=== PATIENT | male | born 1955 | race Caucasian/White ===

== ENCOUNTER 2018-08-12 08:30 | Inpatient (IN) ==
[2018-08-12] MEDS ORDERED: Naloxone 0.4 MG/ML INJ IVP PRN (10:15)
[2018-08-12] MEDS ORDERED: Nitroglycerin 0.4 MG TAB.SUBL SL PRN (10:18)
--- NOTE | 2018-08-12 10:44 | Internal Med History&Physical ---
Date of Encounter: 08/12/18 Time of Encounter: 10:37 Internal Medicine - H&P: HPI Chief complaint: chest pain Admitted From: Home Plans for Post Hospital Care: Home History of present illness: Mr. Bass is a 63 year old male with history of HTN, HLD and current everyday smoker presented to [facility] with complaint of chest pain. he was found to have elevated troponin and was loaded with ASA and given therapeutic lovenox nad was transferred to [facility] for further management of NSTEMI. patient was seen and examined at bedside. as per patient he developed chest pain about one week ago while he was walking and opening the door it was left sided, pressure like 5/10 and radiating to his left arm. the pain self resolved after about 3-5 minutes. it happened while he was walking the same day and self resolved after a few minutes. he continued to have similar episodes throughout the week. on [place] morning of admission at about 4 AM he developed left sided, pressure like chest pain that was radiating to his left arm and back of his shoulder that was 9/10 on severity. he decided to take 2 baby ASA without relief so he visited [facility] ED at about 7 AM. he denies ever having any heart history, denies SOB, palpitations, lower extremity edema, prolonged immobilization, diaphoresis, N/V/D. has had no URTI, sick contacts, calf tenderness, swelling, history of blood clots. does report family history of heart disease and his mother suffers from CHF. he is a current every day smoker about one pack per day. has history of HLD however is not compliant with his medication. Past Med Surg Social Fam HX - Past Medical History Medical history: hyperlipidemia, hypertension Psychiatric history: no psych history - Past Surgical History Surgical History: appendectomy - Social History Smoking Status: Current every day smoker Alcohol use: none Drug use: none - Family History Maternal Hx Family Cardiac Disorders: Yes Internal Medicine - H&P: Meds Lisinopril [Zestril] 20 mg PO QPM 08/12/18 [History] Lisinopril-HCTZ 20-12.5 [Prinzide 20-12.5] 1 tab PO DAILY 08/12/18 [History] Allergy/AdvReac Type Severity Reaction Status Date / Time No Known Allergies Allergy Verified 08/12/18 07:11 All Systems PM: A 10-system review of systems was performed and is negative for pertinent findings except as documented above in the HPI. - Constitutional Vitals: Temp Pulse Resp BP Pulse Ox 98.8 F 82 17 151/94 97 08/12/18 10:27 08/12/18 10:27 08/12/18 10:27 08/12/18 10:08/12/18 10:27 Exam: General: Patient is alert, oriented, no acute distress, morbidly obese Head: atraumatic, normocephalic, Eye: normal appearance, PERRL, no scleral icterus, no conjunctival injection ENT: mucous membranes moist, normal external ear exam Neck: normal inspection, trachea midline, full ROM, no carotid bruits Chest: normal inspection, symmetric chest rise, gynecomastia Respiratory: Distant breath sounds secondary to body habitus, Good respiratory effort. Bilateral breath sounds are clear without wheezing, crackles, or rhonchi. Cardiovascular: Distant heart sounds secondary to body habitus, Regular rate and rhythm. s1 and s2 No clicks, rubs, gallops, or murmors. Abdomen: Bowel sounds present normoactive x-4 quadrants. Abdomen is soft, nondistended. no Epigastric tenderness. No guarding or rebound. No organomegaly noted, obese musculoskeletal: Spontaneously moving all extremities. no edema, no calf tenderness Skin: warm, dry, intact. Neuro: Alert and oriented x3 no focal deficit Psych: Patient's affect is normal Internal Med - H&P Results - EKG Data -: EKG Interpreted by Myself EKG shows normal: sinus rhythm (Nonspecific ST-T changes) - EKG Data Prior EKG available for review: no - Assessment and Plan (1) NSTEMI (non-ST elevated myocardial infarction) Current Visit: Yes Status: Acute Assessment and plan: Telemetry monitoring Follow serial troponin/CK-MB/EKG Transthoracic echocardiograph to identify regional wall motion abnormalities and assess LV function Loaded with aspirin 325 mg at [facility], continue with aspirin 81 mg daily Lipitor 80 mg HS Metoprolol 12.5 mg BID continue with home dose lisinopril NTG q5M PRN for chest pain therapeutic lovenox dose given in the [facility] ED will continue BID ( discussed with cardiology who recommended continuing) NPO at midnight for further cardiac testing ( stress vs cath) Cardiology consulted and recs appreciated lipid panel CBC/BMP AM Vital signs as protocol continue to follow troponin and EKG Q6H (2) Hypertension Current Visit: Yes Status: Acute Assessment and plan: continue home medications if not CI Qualifiers: Hypertension type: essential hypertension Qualified Code(s): I10 - Essential (primary) hypertension (3) HLD (hyperlipidemia) Current Visit: Yes Status: Acute Assessment and plan: is not compliant to medications prescribed by PCP lipid panel ordered started on lipitor 80 mg Qhs for NSTEMI Qualifiers: Hyperlipidemia type: unspecified Qualified Code(s): E78.5 - Hyperlipidemia, unspecified (4) Morbidly obese Current Visit: Yes Status: Acute Assessment and plan: was counseled nutrition consult (5) Current every day smoker Current Visit: Yes Status: Chronic Assessment and plan: was counseled (6) DVT prophylaxis Current Visit: Yes Status: Acute Assessment and plan: on lovenox therapeutic dose - Time Spent With Patient Total time spent is greater than 50% in coordination of care (as documented) at patient's floor/unit and/or counseling patient:
[2018-08-12] MEDS ORDERED: *HR* Morphine 2 MG/ML SYRINGE IVP PRN (10:52)
[2018-08-12] MEDS: 0.9 % Sodium Chloride 1,000 ML IVC SCH (10:55)
[2018-08-12] MEDS ORDERED: Lisinopril-HCTZ 20-12.5mg TABLET PO SCH (11:00)
--- NOTE | 2018-08-12 11:01 | Cardiology Consult Note ---
Date of Encounter: 08/12/18 Time of Encounter: 11:00 Assessment and Plan (1) NSTEMI (non-ST elevated myocardial infarction) Current Visit: Yes Status: Acute Per Cardiology: Multiple risk factors. Initial troponin 0.04. Continue to cycle. Currently chest pain-free. Echo pending. Discussed and reviewed with Dr. Amanda Mandel, plan for [facility] tomorrow. On aspirin, statin, beta filipe, WONG inhibitor. All questions answered. Patient and family verbalized her standing and agreed with plan. (2) Current every day smoker Current Visit: Yes Status: Chronic Per Cardiology: Smokes 1ppd for 50 years. Smoking cessation reinforced. Discussion w patient/family: The assessment and plan as outlined above was discussed with the patient and/or family members who expressed understanding and agreement. All questions were answered. Thank you for involving us in the care of your patient. Please call with any questions. History of Present Illness Consult date: 08/12/18 Requesting physician: Trista Sanchez Consult reason: NSTEMI Chief complaint: CP History of present illness: Mr. Bass is a 63 year old male with a relevant past medical history of HTN, HLD, obesity, nicotine abuse. Cardiology consult for chest pain and elevated troponin. Patient seen with family at bedside. He reports he awakened around 4 AM with onset of left-sided chest pressure squeezing/aching sensation with radiation to his left back and down his left arm. He reports symptoms lasted for a few hours and eventually subsided. He denied any shortness of breath, palpitations, dizziness. Currently chest pain-free. Reports has been experiencing intermittent episodes with past few weeks at rest of lesser intensity. He reports his symptoms last for a few minutes and eventually subside. He reports history of smoking about one pack per day for 50 years. He has never had ischemic evaluation. Does not follow regularly with a PCP. Denies any active bleeding or blood loss. Denies any syncope or falls. Reports history of brother from [place] in his 80s. He denies any infectious process denies any fever, chills, nausea, vomiting, diarrhea. He does report increased short of breath with exertion over the past few months. Denies any known history of COPD. Past Med Surg Social Fam HX - Past Medical History Attestation: Yes The following information was validated with the patient. Source: patient, old records reviewed, obtained from family Medical history: hyperlipidemia, hypertension Psychiatric history: no psych history - Past Surgical History Surgical History: appendectomy - Social History Smoking Status: Current every day smoker Packs per day: 1 Smokeless Tobacco Status: No Alcohol use: none Drug use: none - Family History Maternal Hx Family Cardiac Disorders: Yes Medications and Allergies Lisinopril [Zestril] 20 mg PO QPM 08/12/18 [History] Lisinopril-HCTZ 20-12.5 [Prinzide 20-12.5] 1 tab PO DAILY 08/12/18 [History] Allergy/AdvReac Type Severity Reaction Status Date / Time No Known Allergies Allergy Verified 08/12/18 07:11 All Systems Review: The remainder of the systems were reviewed and are negative - Cardiovascular Cardiovascular: as per HPI, chest pain at rest, dyspnea on exertion Physical Examination Vital Signs, Last 4 Hours Temp Pulse Resp BP Pulse Ox 08/12/18 10:27 98.8 F 82 17 151/94 97 General: Conversant, No Apparent Distress HEENT: Atraumatic, Normocephaly, Mucus Membranes Moist Neck: No JVD, Normal carotid pulses Cardiac: Reg Rate and Rhythm, Normal S1 and S2, No Murmur Lungs: Normal Breath Sounds, No Wheeze, Rales, Rhonchi Neuro: Alert and responsive, No focal deficits noted Abdomen: Soft, Non-Tender, Other (obese) Skin: No rashes noted on visualized skin Musculoskeletal: No Chest Wall Tenderness Extremities: No Clubbing, No Cyanosis, No Edema, Normal Pulses Results Laboratory Tests 08/12/18 08/12/18 08/12/18 07:15 07:15 07:15 WBC 6.6 Hgb 15.9 Hct 43.8 Plt Count 174 INR 1.0 Potassium Creatinine Est GFR (Non-Af Amer) Troponin I B-Natriuretic Peptide 21 08/12/18 07:15 WBC Hgb Hct Plt Count INR Potassium 3.8 Creatinine 1.25 Est GFR (Non-Af Amer) 58 L Troponin I 0.04 H* B-Natriuretic Peptide Active Medications Aspirin (Aspirin) 81 mg PO DAILY [facility] Stop: 02/12/19 09:01 Atorvastatin Calcium (Lipitor) 80 mg PO HS [facility] Stop: 02/11/19 21:01 Enoxaparin Sodium (Lovenox) 140 mg SQ BID [facility]; Protocol Stop: 02/11/19 21:01 Lisinopril/HCTZ (Prinzide 20-12.5) 1 each PO DAILY [facility] Stop: 02/11/19 11:01 Sodium Chloride (0.9 % Sodium Chloride) 1,000 mls @ 60 mls/hr IVC .[id number] [facility] Stop: 08/13/18 19:49 Last Admin: 08/12/18 10:55 Dose: 60 mls/hr Documented by: Lisinopril (Zestril) 20 mg PO QPM [facility]; Protocol Stop: 02/11/19 18:01 Metoprolol Tartrate (Lopressor) 12.5 mg PO BID [facility] Stop: 02/11/19 10:31 Morphine Sulfate (Morphine Sulfate) 1 mg IVP Q6HR PRN; Protocol PRN Reason: chest pain Stop: 02/11/19 10:53 Naloxone HCl (Narcan) 0.4 mg IVP Q2MPRN PRN PRN Reason: SEE COMMENTS Stop: 02/11/19 10:16 Nitroglycerin (Nitroglycerin) 0.4 mg SL Q5MPRN PRN PRN Reason: Chest Pain Stop: 02/11/19 10:19 - Imaging and Cardiology Echo: pending Cardiac cath: pending - EKG Interpretation EKG results cardiology: other (SR 70's on tele) Consult Discharge Plan - Plan Referrals: NONE,PCP [Primary Care Provider] -
[2018-08-12 13:32] LABS: Chol/HDL Ratio 7.7 (0-4.9); Cholesterol 161 mg/dL (< 200); HDL Cholesterol 21 mg/dL (40-59); Magnesium 1.7 mg/dL (1.6-2.6); Phosphorous 2.8 mg/dL (2.7-4.5); Triglycerides 408 mg/dL (< 150)
[2018-08-12 13:45] LABS: Thyroid Stimulating Hormone 1.505 mcIU/mL (0.340-5.600)
[2018-08-12 14:14] LABS: Amphetamine Screen,Urine Negative ng/mL (Cutoff=1000); Barbiturate Screen,Urine Negative ng/mL (Cutoff=200); Benzodiazepines Screen,Urine Negative ng/mL (Cutoff=200); Cannabinoid Screen,Urine Negative ng/mL (Cutoff = 50); Cocaine Screen,Urine Negative ng/mL (Cutoff= 300); Opiate Screen,Urine Negative ng/mL (Cutoff=300); Phencyclidine Screen,Urine Negative ng/mL (Cutoff=25)
[2018-08-12] MEDS ORDERED: Acetaminophen 325 MG TABLET PO PRN ×2 (15:38)
[2018-08-12] MEDS: Lisinopril 20 MG TABLET PO SCH (17:55)
[2018-08-12] MEDS: *HR* Enoxaparin 150 MG/ML SYRINGE SQ SCH (21:32)
[2018-08-13] MEDS: 0.9 % Sodium Chloride 1,000 ML IVC SCH (01:22)
[2018-08-13 02:28] LABS: Basophils # 0.1 K/mcL (0.0-0.2); Basophils % 0.8 %; Eosinophils # 0.4 K/mcL (0.0-0.6); Eosinophils % 5.1 %; Hematocrit 39.8 % (37.5-50.1); Hemoglobin 13.8 g/dL (12.9-16.9); Immature Granulocytes % 0.4 % (0-4); Lymphocytes # 2.2 K/mcL (0.6-4.6); Lymphocytes % 30.5 %; Mean Corpuscular HGB Conc 34.7 g/dL (31.6-35.5); Mean Corpuscular Hemoglobin 33.8 pg (28.0-33.3); Mean Corpuscular Volume 97.5 fL (83.0-100.0); Mean Platelet Volume 10.5 fL (9.4-12.4); Monocytes # 0.7 K/mcL (0.0-1.3); Monocytes % 9.3 %; Neutrophils # 3.8 K/mcL (1.6-8.9); Platelet Count 161 K/mcL (140-400); Red Blood Count 4.08 M/mcL (4.19-5.50); Red Cell Distribution Width 12.6 % (11.5-14.5); Segmented Neutrophils % 53.9 %
[2018-08-13 02:46] LABS: BUN/Creatinine Ratio 19 (6-26); Blood Urea Nitrogen 23 mg/dL (8-23); Calcium 8.8 mg/dL (8.6-10.3); Carbon Dioxide 24 mEq/L (23-29); Chloride 110 mEq/L (98-107); Glucose 111 mg/dL (70-105); Osmolality,Calculated 292 (280-300); Sodium 139 mEq/L (136-145); eGFR For Non-African Americans 59 (> 60)
[2018-08-13] MEDS: Aspirin 81 MG TAB.CHEW PO SCH (08:15)
[2018-08-13] MEDS: *HR* Enoxaparin 150 MG/ML SYRINGE SQ SCH (08:24)
[2018-08-13] MEDS ORDERED: Heparin 1,000 UNITS/500 mL 500 ML ONE ×2 (09:33→11:06)
[2018-08-13] MEDS ORDERED: 0.9 % Sodium Chloride 1,000 ML ONE (09:33)
[2018-08-13] MEDS ORDERED: Nitroglycerin 1,000 MCG/10 ML VIAL IV ONE (09:33)
[2018-08-13] MEDS ORDERED: *HR* Heparin 10,000 UNIT/10 ML VIAL ONE (09:33)
[2018-08-13] MEDS ORDERED: ISOVUE-370 200 ML INFUS..BTL ONE ×3 (09:33→11:18)
[2018-08-13 09:43] LABS: Estimated Average Glucose 117 mg/dl; Hemoglobin A1C 5.7 %
--- NOTE | 2018-08-13 09:47 | Electrocardiograph Report ---
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
--- NOTE | 2018-08-13 09:48 | Electrocardiograph Report ---
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
[2018-08-13] MEDS ORDERED: *HR* FentaNYL (PF) 100 MCG/2 ML VIAL ONE (10:13)
[2018-08-13] MEDS ORDERED: *HR* Midazolam HCl 2 MG/2 ML VIAL ONE (10:13)
[2018-08-13] MEDS ORDERED: Tirofiban 12.5 MG/250ML 12.5 MG/250 ML BAG ONE (10:41)
[2018-08-13] MEDS ORDERED: *HR* Ticagrelor 90 MG TABLET ONE (11:36)
--- NOTE | 2018-08-13 11:45 | Invasive Diagnostic Lab Proc ---
Name: Graham Bass Date of Study: 08/13/2018 Date: 1955 Ht: 72.8in Medical Record#: [id number] Age: 63 Wt: 337.31lb Gender: Male BSA: 2.68 Order #: [id number] BMI: 44.7 Physicians Procedure Physician: Jose Patterson MD Referring MD: Referring MD: Staff Name Position Time In Jacquelyn Arellano RN Monitor 10:08 AM Bridget Brumfield RT Scrub 10:16 AM Florin Snyder RN Cold Roller 10:16 AM Indications Indication Non-Stemi Procedures Performed Procedure CORONARY ARTERY ANGIO S&I PRQ CARD ROLANDO STENT W/ANGIO 1 VSL Pre-Procedure Checklist Informed consent is complete signed and on chart. H&P is on chart. ID band is on and ID verified with patient. Patient NPO for procedure The procedure was described for the patient and questions were answered. ECG is on chart. Plan of Care Patient will tolerate the procedure without complications. Adequate level of comfort will be maintained. Hemodynamics will remain stable Patient will recover from procedure without complications. Respiratory function will be maintained. Cardiac rhythm will remain stable. Patient temperature will be maintained. Patient and/or family have verbalized understanding of the procedure. Patient Education Chief Complaint/Reason for Test: Cardiac Cath Developmental Category: Adult (18-64 years) Developmentally Appropriate for Age: Yes Learning Barriers: None Education Needs: Procedure Education Method: Verbal Information Taught: Cardiac Cath Educational Evaluation: Able to repeat information Intravenous Access Time IV Size Location DC'd Fluid/Drip Rate Units RN 20g 1 /" Patent On Arrival 0.9NaCl 25 ml/hr Allergies No Known Allergies Vital Signs Time BP (mmHg) HR (bpm) O2 Sat. RR (bpm) LOC 10:22 AM / % 4 = Oriented but drowsy 10:27 AM / % 4 = Oriented but drowsy 10:27 AM / % 4 = Oriented but drowsy 10:42 AM / % 4 = Oriented but drowsy 10:57 AM / % 4 = Oriented but drowsy 11:12 AM / % 4 = Oriented but drowsy 10:14 AM 187 / 112 62 100 % 12 10:18 AM 154 / 101 59 97 % 12 10:23 AM 144 / 40 51 97 % 10 10:28 AM 150 / 91 51 98 % 12 10:33 AM 166 / 95 58 97 % 10 10:38 AM 172 / 94 56 97 % 10 10:44 AM 163 / 92 58 96 % 9 10:48 AM 169 / 90 58 98 % 11 10:54 AM 174 / 84 62 97 % 7 10:58 AM 168 / 106 55 97 % 14 11:03 AM 148 / 96 56 100 % 11 11:09 AM 163 / 86 57 94 % 10 11:13 AM 174 / 101 58 99 % 16 11:18 AM 187 / 108 62 99 % 12 11:23 AM 163 / 74 70 99 % 8 Procedural Medications Time Medication Dose Units Method Given By 10:17 AM Oxygen 2 L/min nasal cannula Florin Snyder RN 10:17 AM Versed 1 mg Intravenous Florin Snyder RN 10:17 AM Fentanyl 50 mcg Intravenous Florin Snyder RN 10:23 AM Lidocaine 2% 20 ml Subcutaneous Jose Patterson MD 10:27 AM Lidocaine 2% 18 ml Subcutaneous Jose Patterson MD 10:51 AM Heparin 1000 units Intravenous Florin Snyder RN 10:58 AM Heparin 4000 units Intravenous Florin Snyder RN 10:58 AM Aggrastat Bolus: 75 ml Intravenous Florin Snyder RN 10:59 AM Aggrastat 12.5mg/250ml 27 ml/hr Intravenous Florin Snyder RN 11:19 AM Nitroglycerin 150 mcg Intracoronary Edil Patterson MD 11:21 AM Nitroglycerin 200 mcg Intracoronary Edil Patterson MD 11:25 AM Ancef 1 gram Intravenous Florin Snyder RN 11:30 AM Versed 1 mg Intravenous Florin Snyder RN 11:30 AM Fentanyl 50 mcg Intravenous Florin Snyder RN 11:30 AM Brilinta 180 mg Orally Florin Snyder RN ASA Classification: CLASS II- Mild systemic disease (i.e. well-controlled diabetes, hypertension, asthma, cigarette smoking) Mary Score Preprocedure Postprocedure Activity 2- Moves 4 extremities sustained head lift Activity 2- Moves 4 extremities sustained head lift Circulation 2- SBP +/= 20 points of pre-anesthetic level Circulation 2- SBP +/= 20 points of pre-anesthetic level Consciousness 2- Awake and alert oriented x 3 Consciousness 2- Awake and alert oriented x 3 O2 Saturation 2- Able to maintain O2 satruation of 92% on room air O2 Saturation 2- Able to maintain O2 satruation of 92% on room air Respiratory 2- Able to deep breathe and cough well Respiratory 2- Able to deep breathe and cough well Total Score 10 Total Score 10 Contrast Agent: Isovue Diagnostic Contrast: 359 ml Total Contrast: 359 ml Fluoro Dose: 188 mGy Activated Clotting Time Time Seconds to Clot 11:21 AM 328 Procedure Log Time Note Enter By 09:55 AM CathStat 10:08 AM 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 [facility] 10:12 AM Vitals capture started with the following parameters, Patient=Adult, Interval=5 min, Initial Ksirzqqw=806 mmHg, Deflation Rate=5 mmHg, Cuff placed on Left Arm 10:14 AM HR=62 bpm, BNVC=467/112 mmhg, UsV7=735.0 %, Resp=12 B/min 10:16 AM Jacquelyn Arellano RN Position: Monitor Time in: 10:08 10:16 AM Bridget Brumfield Position: Scrub Time in: 10:16 [facility] 10:16 AM Florin Snyder RN Position: Cold Roller Time in: 10:16 10:16 AM Patient charges- Angio tray pack, Navilyst 3mm J, Pulse Oximetry and ACIST tubing and transducer 10:16 AM Case Delayed No 10:16 AM Hair removed from procedure site in procedure lab using clippers. Bilateral groin prepped with Chloraprep by Florin Snyder RN, then patient was draped. Skin intact. 10:16 AM Physician arrived 10:16 [facility] 10:16 AM Meet and greet completed [facility] 10:16 AM Sign in performed according to hospital policy. Informed consent was obtained. 10:16 AM Procedure start 10:16 10:17 AM Time: 10:17 Oxygen on at 2 L/min per nasal cannula by Florin Snyder RN [facility] 10:17 AM ASA Class CLASS II- Mild systemic disease (i.e. well-controlled diabetes, hypertension, asthma, cigarette smoking) 10:17 AM Time: 10:17 Versed 1 mg Intravenous Given by Florin Snyder RN [email or web address] 10:17 AM Time: 10:17 Fentanyl 50 mcg Intravenous Given by Florin Snyder RN [facility] 10:18 AM HR=59 bpm, UYYK=525/101 mmhg, SpO2=97.0 %, Resp=12 B/min 10:19 AM Recorded ECG: HR=53 Condition=Condition 1 10: AM Time: : Patient comfortable and pain free: Yes tsoummers 10: AM Time: LOC: 4 = Oriented but drowsy tsoummers 10: AM Time out was performed according to hospital policy. Conscious sedation and anesthesia was achieved (see medication log with in this report above) 10: AM Pressure channel 1 zeroed. 10:23 AM HR=51 bpm, ZZFM=293/40 mmhg, SpO2=97.0 %, Resp=10 B/min 10: AM Time: : 20 ml Lidocaine 2% to right groin Subcutaneous Given by Jose Patterson MD [facility] 10:24 AM Micro-Introducer Kit utilized for sheath placement 10: AM Unsuccessful access attempt # 1 into the right Femoral artery. Manual pressure applied to achieve hemostasis.. mm 10:27 AM Time: 10:27 Patient comfortable and pain free: Yes tsoummers 10:27 AM Time: 10:LOC: 4 = Oriented but drowsy tsoummers 10:27 AM Time: 10:27 18 ml Lidocaine 2% to right groin Subcutaneous Given by Jose Patterson MD [facility] 10:27 AM Micro-Introducer Kit utilized for sheath placement tsoumm 10:28 AM HR=51 bpm, AAOR=413/91 mmhg, SpO2=98.0 %, Resp=12 B/min 10:29 AM Access obtained by percutaneous puncture. 6Fr 10cm Terumo Lysite sheath placed in right Femoral artery. [id number] oumm 10:29 AM 0.035 145cm Navilyst 3mmJ wire [id number] mm 10:30 AM 5Fr FR 4 catheter inserted over the wire [facility] mm 10:30 AM wire removed 10:31 AM RCA angiography performed in multiple views. tsoumm 10:31 AM Coronary Dominance: right tsoummers 10:31 AM Recorded Pressure: Ao, HR=59, Condition=Condition 1 (Aorta) Ao 132/95/112 10:31 AM Lesion found in Proximal RCA. Pre Stenosis: 60 Pre RUBEN Flow: tsoummers 10:31 AM Right Coronary, Right Posterior Descending Arteries with Right Posterolateral and Acute Marginal branches with 60 % stenosis. If graft is supplying this area, 0 % stenosis tsoummers 10:32 AM 0.035 260cm Navilyst 3mmJ wire [id number] tsoummers 10:32 AM Catheter removed tsoummers 10:32 AM 6Fr XB LAD 3.5 Ferris Bright-Tip guide catheter was used to cannulate the PCI vessel successfully. reused? No tsoummers 10:33 AM wire removed tsoummers 10:33 AM HR=58 bpm, TISU=303/95 mmhg, SpO2=97.0 %, Resp=10 B/min 10:35 AM Guide catheter removed intact. tsoummers 10:36 AM 6Fr XB LAD 4 Ferris Bright-Tip guide catheter was used to cannulate the PCI vessel successfully. reused? No tsoummers 10:38 AM HR=56 bpm, VHMV=131/94 mmhg, SpO2=97.0 %, Resp=10 B/min 10:41 AM difficulty engaging catheter into LCA tsoummers 10:42 AM Time: 10:27 Patient comfortable and pain free: Yes tsoummers 10:42 AM Time: 10:27LOC: 4 = Oriented but drowsy tsoummers 10:42 AM Guide catheter removed intact. tsoummers 10:42 AM 5Fr FL 4 catheter inserted over the wire DNC tsoummers 10:44 AM HR=58 bpm, OBJR=464/92 mmhg, SpO2=96.0 %, Resp=9 B/min 10:44 AM diagnostic J wire reinserted with straight end first... tsoummers 10:45 AM Catheter removed tsoummers 10:46 AM 6Fr XB4.0 Ferris Bright-Tip guide catheter was used to cannulate the PCI vessel successfully. reused? No tsoummers 10:47 AM J wire removed tsoummers 10:47 AM Recorded Pressure: Ao, HR=52, Condition=Condition 1 (Aorta) Ao 146/84/108 10:48 AM HR=58 bpm, TBYP=400/90 mmhg, SpO2=98.0 %, Resp=11 B/min 10:51 AM Guide catheter removed intact. tsoummers 10:51 AM Time: 10:51 Heparin 1000 units Intravenous Given by Florin Snyder RN [facility] 10:54 AM HR=62 bpm, LNCI=469/84 mmhg, SpO2=97.0 %, Resp=7 B/min 10:54 AM 6Fr CLS 4 Runway guide catheter was used to cannulate the PCI vessel successfully. reused? No [facility] 10:56 AM LCA angiography performed in multiple views. [facility] 10:56 AM Recorded Pressure: Ao, HR=55, Condition=Condition 1 (Aorta) Ao 141/84/106 10:56 AM Recorded Pressure: Ao, HR=55, Condition=Condition 1 (Aorta) Ao 140/82/103 10:57 AM Time: 10:42LOC: 4 = Oriented but drowsy [facility] 10:57 AM Time: 10:42 Patient comfortable and pain free: Yes [facility] 10:58 AM HR=55 bpm, NODN=290/106 mmhg, SpO2=97.0 %, Resp=14 B/min 10:58 AM Time: 10:58 Heparin 4000 units Intravenous Given by Florin Snyder RN [facility] 10:59 AM Time: 10:58 Aggrastat Bolus: 75 ml Intravenous Given by Florin Snyder RN Guaman pump [facility] 10:59 AM Time: 10:59 Aggrastat 12.5mg/250ml 27 ml/hr Intravenous Given by Florin Snyder RN Guaman pump [facility] 11:00 AM Lesion found in Mid LAD. Pre Stenosis: 100 Pre RUBEN Flow: 0: No Flow/No perfusion [facility] 11:00 AM Mid/Distal Left Anterior Descending Coronary Artery and diagonal branches with 100% stenosis. If graft is supplying this area, 0 % stenosis [facility] 11:03 AM HR=56 bpm, JHWW=741/96 mmhg, UhG7=096.0 %, Resp=11 B/min 11:04 AM .014 [employer] [place] 190cm guide wire across target lesion- successful. reused? No. Placed in Circ [facility] 11:05 AM Inflation device was opened. [facility] 11:06 AM .014 [employer] [place] 190cm guide wire across target lesion- successful. reused? No [facility] 11:09 AM HR=57 bpm, BUZI=261/86 mmhg, SpO2=94.0 %, Resp=10 B/min 11:12 AM Time: 10:57 Patient comfortable and pain free: Yes [facility] 11:12 AM Time: 10:57LOC: 4 = [facility] AM 1.5 mm x 15 mm Emerge Monorail balloon across target lesion- successful. reused? No [facility] 11:13 AM HR=58 bpm, JGBK=300/101 mmhg, SpO2=99.0 %, Resp=16 B/min 11:14 AM Balloon inflated @ 6 jessenia for 12 seconds [facility] 11:15 AM contacted bed management Boris, [facility] 11:15 AM Balloon inflated @ 6 jessenia for 14 seconds [facility] 11:15 AM Balloon catheter removed intact. [facility] 11:16 AM 3.0mm x 20mm Synergy drug-eluting stent across target lesion- successful Lot #[id number] [facility] 11:18 AM HR=62 bpm, VQEV=444/108 mmhg, SpO2=99.0 %, Resp=12 B/min 11:18 AM Recorded ECG: HR=59 Condition=Condition 1 11:19 AM Stent deployed @ 6 jessenia for 12 seconds [facility] 11:19 AM Time: 11:19 Nitroglycerin 150 mcg Intracoronary Given by Edil Patterson MD 11:20 AM Stent balloon reinflated @ 9 jessenia for 6 seconds [facility] 11:20 AM Stent balloon reinflated @ 14 jessenia for 9 seconds [facility] 11:21 AM At 11:21 the ACT was 328 seconds. [facility] 11:21 AM Stent delivery system removed intact. [facility] 11:22 AM Time: 11:21 Nitroglycerin 200 mcg Intracoronary Given by Edil Patterson MD 11:23 AM HR=70 bpm, FXDM=095/74 mmhg, SpO2=99.0 %, Resp=8 B/min 11:24 AM guide wires removed intact [facility] 11:24 AM Guide catheter removed intact. [facility] 11:24 AM 5Fr Pigtail catheter inserted over the wire DNC cristinevalarie 11:25 AM Time: 11:25 Ancef 1 gram Intravenous Given by Florin Snyder RN 11:26 AM Catheter removed, unable to cross to LV tsjeannette 11:27 AM Bolus angiogram of right Femoral complete: hand injected yasmin 11:27 AM Time: 11:12 Patient comfortable and pain free: Yes yasmin 11:27 AM Time: 11:12LOC: 4 = Oriented but drowsy tsjeannette 11:28 AM Procedure completed at 11:28 08/13/2018[facility] 11[facility]28 AM Did you address RUBEN flow and Dominance? Yes [facility] AM Sign out completed: Radiation Dose 1811.67 mGy, 188 Gy/cm2 Fluoro Time: 27 Isovue 370 - 200ml contrast 359 ml given by Jose Patterson MD. Complications: None. 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 Sedation minutes 72. Cardiac Rehab Consult needed: Yes. Confirmed administered medications: Yes jeannette 11:29 AM Isovue 370 - 200ml,3 Bottle(s) used. [facility] 11[facility]29 AM Arterial sheath pulled, Angio-seal closure device used and was Successful [id number] S/N. tsyasmin 11:29 AM Estimated Blood Loss: less than 50cc tsoujeannette 11:30 AM Post ECG NSR yasmin 11:30 AM Post Blood Pressure 180/93 tsjeannette 11:30 AM Information taught Cardiac Cath, PCI, and Angioseal jeannette 11:30 AM Time: 11:30 Versed 1 mg Intravenous Given by Florin Snyder RN 11:30 AM Time: 11:30 Fentanyl 50 mcg Intravenous Given by Florin Snyder RN 11:30 AM Time: 11:30 Brilinta 180 mg Orally Given by Florin Snyder RN 11:31 AM Education needs Procedure, Plan of Care, and Responsibilities of Patient in Care tsjeannette 11:31 AM Learning barriers :None yasmin 11:31 AM Education Methods Verbal yasmin 11:31 AM Education evaluation Able to repeat information gopi 11:32 AM Plavix, Effient or Brilinta given Yes gopi 11:32 AM Delay to floor No gopi 11:32 AM Family placed in consult room. tsyasmin 11:33 AM Lesion found in Proximal LAD. Pre Stenosis: 40 Pre RUBEN Flow: tsoummers 11:33 AM Proximal Left Anterior Descending Coronary Artery with 40% stenosis. If graft is supplying this territory, 0 % stenosis. [facility] 11[facility]37 AM Report given to esmer OSBORNE Pt taken to E Room #24. 11:37 tsoummers 11:37 AM Site status No bleeding/hematoma - Rt Groin as reported by Bridget Brumfield RT at 11:32 [facility] 11:37 AM Opsite applied gopi Complications Complication None Hemodynamics Pressures Site Systolic/A Wave Diastolic/V Wave Mean AO 132 95 112 AO 146 84 108 AO 141 84 106 AO 140 82 103 Post Procedure Information Blood Pressure: 180/93 mmHg Rhythm: NSR Post procedural instructions were given Closure Device Time Device Success/Fail 08/13/2018 11:32:00 AM Angio-Seal VIP Successful Site Checks Time Location Status Staff Sheath In? Note 11:32 AM Rt Groin No bleeding/hematoma Bridget Brumfield RT Pulses Time Site Pre-Procedure Post-Procedure Note Bilateral DP & PT 2+ Bilateral radial 2+ Updated by Jacquelyn Arellano RN on 08/13/2018 11:38:04 AM electronically signed on 08/13/2018 11:39:21 AM with status of Final
--- NOTE | 2018-08-13 11:57 | Pre-Sedation Evaluation ---
Pre-sedation evaluation - Pre-sedation checklist Date of procedure: 08/13/18 Procedure: C Recent Vitals: Last Vital Signs Temp 98.0 F 08/13/18 08:05 Pulse 68 08/13/18 08:05 Resp 16 08/13/18 08:05 BP 157/93 08/13/18 08:05 Pulse Ox 96 08/13/18 08:20 H&P (including ROS) documented in medical record: Yes Previous reaction to sedatives/anesthetics: No Dietary Status: NPO after Midnight Dentition: No loose teeth or bridges ASA Classification *see protocol: CLASS II-Mild systemic disease Cardiac Registry (Cardio Only) - Functional Capacity Functional Capacity: >=4 METS with symptoms - Clincal Frailty Scale Clinical Frailty Scale: Managing Well
[2018-08-13] MEDS ORDERED: Tirofiban 12.5 MG/250ML 12.5 MG/250 ML BAG IVC SCH (12:00)
--- NOTE | 2018-08-13 14:17 | Internal Med Progress Note ---
Hospitalist Progress Note - Encounter Date of Encounter: 08/13/18 Time of Encounter: 14:15 - Subjective Interval History: Mr. Bass is a 63 year old male with history of HTN, HLD, morbid obesity and current everyday smoker presented to [facility] [facility] with complaint of chest pain. he was found to have elevated troponin and was loaded with ASA and given thera peutic lovenox and transferred to [facility] for further management of NSTEMI. He was admitted in the hospital and placed him on telemetry monitor. He was continue her on Lovenox subcutaneous injection at therapeutic dose. His troponin's peak at 4.98. He was evaluated by Cardiology and who did C today. He just came back from [facility] with PCI. He denied any more CP. He still has some BADILLO and SOB. - Exam Vitals: Temp Pulse Resp BP Pulse Ox 97.9 F 50 18 147/89 99 08/13/18 13:45 08/13/18 13:45 08/13/18 13:45 08/13/18 13:45 08/13/18 13:45 Exam: Gen: Alert, awake, Oriented to time,place and person Chest: Diminished breath sounds B/L, mild wheezing, No crackles, No rales Heart: S1S2+ RRR No murmurs Abd: Soft, NT, BS +, No organomegaly Ext: No edema, pulses are palpable, No calf tenderness Neuro : Benign findings Skin: No rash. - Assessment and Plan (1) NSTEMI (non-ST elevated myocardial infarction) Current Visit: Yes Status: Acute Assessment and Plan: cont on tele his trop peaked at 4.98 Did go for [facility] with s/p PCI to mid LAD today cont ASA + Brilinta d/c Lovenox cont Lipitor, Lisinopril and BB Metoprolol Patient does need to stay in the hospital more than 2 midnights due to his complex medical problems with NSTEMI and CAD. So we will change him to full admission today. I did review my colleague Dr. Sanchez's H & P including HPI, PMH, PSH, FH, SH, and ROS no changes noticed (2) CAD (coronary artery disease) Current Visit: Yes Status: Acute Assessment and Plan: as above (3) Hypertension Current Visit: Yes Status: Acute Assessment and Plan: stable BP with current meds (4) HLD (hyperlipidemia) Current Visit: Yes Status: Acute Assessment and Plan: reviewed Lipid profile cont Lipitor 80mg (5) Morbidly obese Current Visit: Yes Status: Acute Assessment and Plan: was counseled nutrition consult concerning for YOJANA.. Recommended outpatient sleep study (6) Current every day smoker Current Visit: Yes Status: Chronic Assessment and Plan: Counseled to quit smoking placed on nicotine patch (7) DVT prophylaxis Current Visit: Yes Status: Acute Assessment and Plan: heparin SQ - Time Spent with Patient Total time spent is greater than 50% in coordination of care (as documented) at patient's floor/unit and/or counseling patient: Internal Medicine: Result - Labs CBC & Chem 7: 08/13/18 02:11 08/13/18 02:11 Labs: Short CBC 08/13/18 Range/Units 02:11 WBC 7.1 (4.3-11.1) K/mcL Hgb 13.8 D (12.9-16.9) g/dL Hct 39.8 (37.5-50.1) % Plt Count 161 (140-400) K/mcL Neutrophils # 3.8 (1.6-8.9) K/mcL BMP 08/13/18 02:11 Sodium 139 Potassium 4.0 Chloride 110 H Carbon Dioxide 24 BUN 23 Creatinine 1.23 Glucose 111 H Calcium 8.8 Cardiac Enzymes 08/12/18 Range/Units 16:07 Troponin I 4.98 H* (< 0.04) ng/mL - Impressions Impressions Echocardiogram 08/12/18 10:17 Impressions: LVEF 55-60%. Mild segmental left ventricular systolic dysfunction (see Wall Motion section for detail). Mild concentric left ventricular hypertrophy. Asymmetric apical hypertrophy (1.6 cm) with hypokinesis, cannot rule out apical hypertrophic cardiomyopathy. Mild left ventricular diastolic dysfunction. Normal right ventricular structure and function. Mild tricuspid regurgitation. No evidence of pulmonary hypertension. Left Ventricular Wall Motion: Rest Echo Findings The apex, apical anterior, apical septal and mid anterior septal olmos were hypokinetic. All other wall segments showed normal motion. Findings: Study Quality * Technically adequate exam. ECG Findings * Normal sinus rhythm. Left Ventricle * LVEF 55-60%. * Normal LV chamber size. * Mild segmental left ventricular systolic dysfunction. * Mild concentric left ventricular hypertrophy. * Asymmetric apical hypertrophy (1.6 cm) with hypokinesis, cannot rule out apical hypertrophic cardiomyopathy. * Mild left ventricular diastolic dysfunction. Right Ventricle * Normal right ventricular structure and function. Left Atrium * Normal left atrial size. Right Atrium * Normal right atrial size. Interatrial Septum * Interatrial septum not well evaluated. Aortic Valve * Trileaflet aortic valve with normal function. * No aortic stenosis. * No aortic regurgitation. Mitral Valve * Normal mitral valve structure. * No mitral stenosis. * Trace mitral regurgitation. Tricuspid Valve * Normal tricuspid valve structure. * No tricuspid stenosis. * Mild tricuspid regurgitation. * Unable to estimate RVSP due to lack of IVC visualization. RV-RA gradient 20 mmHg. * No evidence of pulmonary hypertension. Pulmonic Valve * Pulmonic valve is not well visualized. * No pulmonic stenosis. * No pulmonic regurgitation. Aorta * Normally sized aortic root. Pericardium * The pericardium appears normal. IVC * The IVC is not well evaluated. Consult Discharge Plan - Plan Referrals: Saida Shelton CNP [Primary Care Provider] - 08/21/18 12:45 pm (2) CAD (coronary artery disease) Qualifiers: Coronary Disease-Associated Artery/Lesion type: [place] artery [place] vs. transplanted heart: [place] heart Associated angina: with unstable angina Qualified Code(s): I25.110 - Atherosclerotic heart disease of [place] coronary artery with unstable angina pectoris (3) Hypertension Qualifiers: Hypertension type: essential hypertension Qualified Code(s): I10 - Essential (primary) hypertension (4) HLD (hyperlipidemia) Qualifiers: Hyperlipidemia type: unspecified Qualified Code(s): E78.5 - Hyperlipidemia, unspecified
[2018-08-13] MEDS ORDERED: *HR* LORazepam 1 MG TABLET PO PRN (16:26)
[2018-08-13] MEDS: Lisinopril 20 MG TABLET PO SCH (17:32)
[2018-08-13] MEDS: *HR* Heparin 5,000 UNIT/ML VIAL SQ SCH (17:32)
[2018-08-14] MEDS: *HR* Heparin 5,000 UNIT/ML VIAL SQ SCH (05:51)
[2018-08-14 07:06] VITALS: BP 129/82
[2018-08-14 07:41] LABS: BUN/Creatinine Ratio 15 (6-26); Blood Urea Nitrogen 17 mg/dL (8-23); Calcium 8.9 mg/dL (8.6-10.3); Carbon Dioxide 23 mEq/L (23-29); Chloride 106 mEq/L (98-107); Glucose 109 mg/dL (70-105); Osmolality,Calculated 288 (280-300); Potassium 4.3 mEq/L (3.5-5.1); Sodium 138 mEq/L (136-145); eGFR For Non-African Americans > 60 (> 60)
--- NOTE | 2018-08-14 08:15 | Cardiology Progress Note ---
Date of Encounter: 08/14/18 Time of Encounter: 08:10 Assessment and Plan (1) NSTEMI (non-ST elevated myocardial infarction) Current Visit: Yes Status: Acute Per Cardiology: Peak trop 4.98. CP free. ECHO: Impressions: LVEF 55-60%. Mild segmental left ventricular systolic dysfunction (see Wall Motion section for detail). Mild concentric left ventricular hypertrophy. Asymmetric apical hypertrophy (1.6 cm) with hypokinesis, cannot rule out apical hypertrophic cardiomyopathy. Mild left ventricular diastolic dysfunction. Normal right ventricular structure and function. Mild tricuspid regurgitation. No evidence of pulmonary hypertension. S/p LHC: Lesion Findings/Interventions * Left Main Coronary Artery The LMCA is angiographically free of disease. * Left Anterior Descending There is a 40% stenosis in the Proximal LAD. There is a 20 mm long, 100% stenosis in the Mid LAD. The lesion has a RUBEN flow of 0. An intervention was performed on the Mid LAD with a final stenosis of 0%. There were no lesion complications. The final RUBEN flow was 3. * Circumflex The Circumflex is angiographically free of disease. The 1st Marginal is angiographically free of disease. * Right Coronary Artery There is a 60% stenosis in the Proximal RCA. On aspirin, statin, beta filipe, WONG inhibitor. Received Brilinta load in [employer] Child Care [employer] yesterday, will start Brilinta 90mg PO BID-- assistance card provided. F/u arranged, cardiology signing off, re-consult PRN. Post-AR and procedure care/education provided. All questions answered. (2) Current every day smoker Current Visit: Yes Status: Chronic Per Cardiology: Smoked 1ppd for 50 years. Smoking cessation reinforced. Had success with Chantix in the past, patient prefers to monitor for now. Discussion w patient/family: The assessment and plan as outlined above was discussed with the patient and/or family members who expressed understanding and agreement. All questions were answered. Thank you for involving us in the care of your patient. Please call with any questions. Subjective Principal diagnosis: NSTEMI Interval history: Denies any chest pain, shortness of breath, palpitations. Denies any concerns from his right groin site. Objective Vital Signs, Last 4 Hours Temp Pulse Resp BP Pulse Ox 08/14/18 07:04 98.3 F 71 17 129/82 96 08/14/18 05:44 97.8 F 61 12 132/77 99 General: Conversant, No Apparent Distress HEENT: Atraumatic, Normocephaly, Mucus Membranes Moist Neck: No JVD, Normal carotid pulses Cardiac: Reg Rate and Rhythm, Normal S1 and S2, No Murmur Lungs: Normal Breath Sounds, No Wheeze, Rales, Rhonchi Neuro: Alert and responsive, No focal deficits noted Abdomen: Soft, Non-Tender Skin: No rashes noted on visualized skin, Other (Right groin site with mild ecchymosis, no bleeding, no hematoma, right PT and DP pulses 1+ palpable) Musculoskeletal: No Chest Wall Tenderness Extremities: No Clubbing, No Cyanosis, No Edema, Normal Pulses Results 08/13/18 02:11 08/14/18 06:49 Lab Results Laboratory Tests 08/12/18 08/12/18 08/12/18 07:15 11:21 16:07 Creatinine Est GFR (Non-Af Amer) Troponin I 0.04 H* 1.40 H* 4.98 H* 08/14/18 06:49 Creatinine 1.13 Est GFR (Non-Af Amer) > 60 Troponin I ITS Impressions Echocardiogram 08/12/18 10:17 Impressions: LVEF 55-60%. Mild segmental left ventricular systolic dysfunction (see Wall Motion section for detail). Mild concentric left ventricular hypertrophy. Asymmetric apical hypertrophy (1.6 cm) with hypokinesis, cannot rule out apical hypertrophic cardiomyopathy. Mild left ventricular diastolic dysfunction. Normal right ventricular structure and function. Mild tricuspid regurgitation. No evidence of pulmonary hypertension. Left Ventricular Wall Motion: Rest Echo Findings The apex, apical anterior, apical septal and mid anterior septal olmos were hypokinetic. All other wall segments showed normal motion. Findings: Study Quality * Technically adequate exam. ECG Findings * Normal sinus rhythm. Left Ventricle * LVEF 55-60%. * Normal LV chamber size. * Mild segmental left ventricular systolic dysfunction. * Mild concentric left ventricular hypertrophy. * Asymmetric apical hypertrophy (1.6 cm) with hypokinesis, cannot rule out apical hypertrophic cardiomyopathy. * Mild left ventricular diastolic dysfunction. Right Ventricle * Normal right ventricular structure and function. Left Atrium * Normal left atrial size. Right Atrium * Normal right atrial size. Interatrial Septum * Interatrial septum not well evaluated. Aortic Valve * Trileaflet aortic valve with normal function. * No aortic stenosis. * No aortic regurgitation. Mitral Valve * Normal mitral valve structure. * No mitral stenosis. * Trace mitral regurgitation. Tricuspid Valve * Normal tricuspid valve structure. * No tricuspid stenosis. * Mild tricuspid regurgitation. * Unable to estimate RVSP due to lack of IVC visualization. RV-RA gradient 20 mmHg. * No evidence of pulmonary hypertension. Pulmonic Valve * Pulmonic valve is not well visualized. * No pulmonic stenosis. * No pulmonic regurgitation. Aorta * Normally sized aortic root. Pericardium * The pericardium appears normal. IVC * The IVC is not well evaluated. Chest X-Ray 08/13/18 16:25 IMPRESSION: No acute findings in the chest. D/ / Asher Gregorio MD / Asher Gregorio MD Interpreting Provider: Asher Gregorio MD Active Medications Acetaminophen (Tylenol) 650 mg PO Q6HR PRN PRN Reason: headache Stop: 02/11/19 15:39 Last Admin: 08/12/18 16:07 Dose: 650 mg Documented by: Aspirin (Aspirin) 81 mg PO DAILY ABIMBOLA Stop: 02/12/19 09:01 Last Admin: 08/13/18 08:15 Dose: 81 mg Documented by: Atorvastatin Calcium (Lipitor) 80 mg PO HS ABIMBOLA Stop: 02/11/19 21:01 Last Admin: 08/13/18 20:31 Dose: 80 mg Documented by: Heparin Sodium (Porcine) (Heparin) 5,000 unit SQ Q12HCO ABIMBOLA Stop: 02/12/19 18:01 Last Admin: 08/14/18 05:51 Dose: 5,000 unit Documented by: Hydralazine HCl (Hydralazine) 10 mg IVP Q6HR PRN PRN Reason: Hypertension Stop: 02/12/19 15:35 Last Admin: 08/13/18 15:48 Dose: 10 mg Documented by: Lisinopril (Zestril) 20 mg PO QPM ABIMBOLA; Protocol Stop: 02/11/19 18:01 Last Admin: 08/13/18 17:32 Dose: 20 mg Documented by: Lorazepam (Ativan) 1 mg PO TID PRN PRN Reason: Anxiety Stop: 02/12/19 16:27 Last Admin: 08/13/18 17:32 Dose: 1 mg Documented by: Metoprolol Tartrate (Lopressor) 12.5 mg PO BID ABIMBOLA Stop: 02/11/19 10:31 Last Admin: 08/13/18 20:32 Dose: 12.5 mg Documented by: Morphine Sulfate (Morphine Sulfate) 1 mg IVP Q6HR PRN; Protocol PRN Reason: chest pain Stop: 02/11/19 10:53 Naloxone HCl (Narcan) 0.4 mg IVP Q2MPRN PRN PRN Reason: SEE COMMENTS Stop: 02/11/19 10:16 Nitroglycerin (Nitroglycerin) 0.4 mg SL Q5MPRN PRN PRN Reason: Chest Pain Stop: 02/11/19 10:19 - Imaging and Cardiology Echo: report reviewed Cardiac cath: report reviewed Consult Discharge Plan - Plan Referrals: Saida Shelton CNP [Primary Care Provider] - 08/21/18 12:45 pm Prescriptions: Ticagrelor [Brilinta] 90 mg PO BID #60 tablet Atorvastatin Calcium [Lipitor] 80 mg PO HS #30 tab Metoprolol [Lopressor] 12.5 mg PO BID #30 tablet
[2018-08-14] MEDS: Aspirin 81 MG TAB.CHEW PO SCH (08:54)
[2018-08-14] MEDS ORDERED: *HR* Ticagrelor 90 MG TABLET PO SCH (09:00)
--- NOTE | 2018-08-14 09:23 | Discharge Summary ---
- NOTES TO OUTPATIENT PROVIDER Notes to Outpatient Provider: Follow up with PCP in one week. Follow-up with cardiology in one to 2 weeks. Please quit smoking. Please go for out patient sleep study Orders not resulted at time of discharge: Pending orders 08/13/18 11:49 ECG 12 lead ECG [ECG] Routine ECG 12 lead ECG [ECG] Stat Date of Encounter: 08/14/18 Time of Encounter: 09:20 - Discharge Diagnosis (1) NSTEMI (non-ST elevated myocardial infarction) Priority: Primary Status: Acute (2) CAD (coronary artery disease) Priority: Primary Status: Acute Qualifiers: Qualified Code(s): I25.110 - Atherosclerotic heart disease of redding coronary artery with unstable angina pectoris (3) Hypertension Priority: Secondary Status: Acute Qualifiers: Qualified Code(s): I10 - Essential (primary) hypertension (4) HLD (hyperlipidemia) Priority: Secondary Status: Acute Qualifiers: Qualified Code(s): E78.5 - Hyperlipidemia, unspecified (5) Morbidly obese Priority: Secondary Status: Acute (6) Current every day smoker Priority: Secondary Status: Chronic (7) DVT prophylaxis Priority: Secondary Status: Acute Hospital course: Mr. Bass is a 63 year old male with history of HTN, HLD, morbid obesity and current everyday smoker presented to [facility] with complaint of chest pain. he was found to have elevated troponin and was loaded with ASA and given therapeutic lovenox and transferred to [place] for further management of NSTEMI. He was admitted in the hospital and placed him on compliance monitor. He was continue her on Lovenox subcutaneous injection at therapeutic dose. His troponin's peak at 4.98. He was evaluated by Cardiology. He did for [facility] with PCI to mid LAD. He denied any more CP / SOB / BADILLO. Will d/c him home in stable condition today with PO meds - ASA, Brilinta, Metoprolol, Lipitor and Lisinopril. I did mental health counselor the pt to quit smoking, also recommend him to go for out pt sleep study. - Time Spent with Patient Total time spent providing and/or coordinating discharge services: - Discharge Medications Prescriptions: New Ticagrelor [Brilinta] 90 mg PO BID #60 tablet Atorvastatin Calcium [Lipitor] 80 mg PO HS #30 tab Metoprolol [Lopressor] 12.5 mg PO BID #30 tablet Continued Aspirin [Adult Aspirin Regimen] 81 mg PO QAM Lisinopril-HCTZ 20-12.5 [Prinzide 20-12.5] 1 tab PO QAM Lisinopril [Zestril] 20 mg PO HS Discontinued Naproxen Sodium [Aleve] 220 mg PO DAILY Home Medications: Lisinopril [Zestril] 20 mg PO HS 08/12/18 [History] Lisinopril-HCTZ 20-12.5 [Prinzide 20-12.5] 1 tab PO QAM 08/12/18 [History] Aspirin [Adult Aspirin Regimen] 81 mg PO QAM 08/13/18 [History] Atorvastatin Calcium [Lipitor] 80 mg PO HS #30 tab 08/14/18 [Rx] Metoprolol [Lopressor] 12.5 mg PO BID #30 tablet 08/14/18 [Rx] Ticagrelor [Brilinta] 90 mg PO BID #60 tablet 08/14/18 [Rx] Allergies/Adverse Reactions: Allergy/AdvReac Type Severity Reaction Status Date / Time No Known Allergies Allergy Verified 08/13/18 13:53 Date of admission: 08/13/18 09:25 Primary care physician: Saida Shelton Consults: 08/12/18 10:16 Consult to Cardiology [CONS] Routine Comment: Consulting Provider: Cardiology Gayathri Reason for Consult: NSTEMI - discussed with Igor ISRAEL Call Completed: Yes 08/12/18 11:21 Consult to Cardiac Rehabilitation-Phase1 [CONS] Routine Comment: Reason for Consult: NSTEMI Call Completed: No 08/13/18 11:49 Consult to Cardiac Rehabilitation-Phase1 [CONS] Routine Comment: Reason for Consult: AMI Call Completed: Yes Consult to Nurse Navigator [CONS] Routine Comment: - Constitutional Vitals: Temp Pulse Resp BP Pulse Ox 98.3 F 71 17 129/82 96 08/14/18 07:04 08/14/18 07:04 08/14/18 07:04 08/14/18 07:04 08/14/18 07:04 General appearance: Present: A&O X 3, no acute distress, answers questions appropriately Exam: Gen: Alert, awake, Oriented to time,place and person Chest: Diminished breath sounds B/L, No wheezing, No crackles, No rales Heart: S1S2+ RRR No murmurs Abd: Soft, NT, BS +, No organomegaly Ext: No edema, pulses are palpable, No calf tenderness Neuro : Benign findings Skin: No rash. - Patient Status Disposition: Home, Self-Care Condition: Good Overall status at discharge: patient is back to baseline - Discharge Instructions Follow Up With: Saida Shelton CNP [Primary Care Provider] - 08/21/18 12:45 pm Jose Patterson [Partnered Physician] - - Diet and Activity Activity: increase activity as tolerated Diet: low salt diet
--- NOTE | 2018-08-14 11:02 | Electrocardiograph Report ---
[place] [address] Test Date: 2018-08-14 Pat Name: Graham Bass Department: 111 Room: 2NE24 Gender: M Life Support Technician: : 1955 Requested By: Jose Patterson Order Number: [id number] Reading MD: Anusha Mandel Measurements Intervals [place] Rate: 65 P: 55 CO: 168 QRS: 17 QRSD: 114 T: 104 QT: 452 QTc: 464 Interpretive Statements SINUS RHYTHM WITH SINUS ARRHYTHMIA MODERATE INTRAVENTRICULAR CONDUCTION DELAY [110+ ms QRS DURATION] MARKED T-WAVE ABNORMALITY, CONSIDER ANTEROLATERAL ISCHEMIA [-0.5+ mV T WAVE IN I/aVL/V3-V6] Electronically Signed On 08-14-2018 11:00:28 EDT by Anusha Mandel
--- NOTE | 2018-08-14 15:12 | Electrocardiograph Report ---
[address] [place], [place] [address] Test Date: 2018-08-13 Pat Name: Graham Bass Department: 111 Room: 2NE24 Gender: M Behavioral Sciences Department [place] [facility] [place] 1955 Requested By: Jose Patterson Order Number: [id number] Reading MD: Hussein Mandel Measurements Intervals [place] Rate: 53 P: 44 MI: 182 QRS: 25 QRSD: 112 T: 125 QT: 472 QTc: 456 Interpretive Statements SINUS BRADYCARDIA MODERATE INTRAVENTRICULAR CONDUCTION DELAY MARKED T-WAVE ABNORMALITY, CONSIDER ANTEROLATERAL ISCHEMIA Electronically Signed On 08-14-2018 15:10:43 EDT by Hussein Mandel
== END 2018-08-14 11:50 | disposition home or self-care (01) | DRG 247 ==
LOC: 3BNU → SUATTDRO 10:10 → 2NENU 08-13 11:24
PROVIDERS: ADMIT Internal Medicine; ATTEND Family Medicine